=== PATIENT | female | born 1940 | race Caucasian/White ===

== ENCOUNTER 2016-08-15 12:53 | Outpatient (CLI) | payer OTHER ==
[2012-06-30 18:37] VITALS: BP 158/79
== END 2016-08-15 12:54 ==
LOC: CARD 12:53
PROVIDERS: ATTEND Internal Medicine Cardiovascular Disease
DX: R07.9 Chest pain, unspecified (principal)

== ENCOUNTER 2016-11-07 13:27 | Outpatient (CLI) | payer OTHER ==
[2012-06-30 18:37] VITALS: BP 158/79
== END 2016-11-07 13:28 ==
LOC: CARD 13:27
PROVIDERS: ATTEND Internal Medicine Cardiovascular Disease
DX: I77.819 Aortic ectasia, unspecified site (principal); I10 Essential (primary) hypertension; E11.9 Type 2 diabetes mellitus without complications; E78.5 Hyperlipidemia, unspecified; R07.89 Other chest pain
CPT/HCPCS: G0463